=== PATIENT | female | born 1965 | race Caucasian/White ===

== ENCOUNTER 2021-01-23 14:01 | Emergency (ER) | payer OTHER ==
[2021-01-23] MEDS ORDERED: IBUPROFEN 600 MG TAB PO STA (17:33)
--- NOTE | 2021-01-23 17:41 | ED ---
General Adult HPI - General Chief complaint: Upper Respiratory Infection Stated complaint: Covid+,SOB Time Seen by Provider: 01/23/21 16:36 Source: patient Mode of arrival: ambulatory Limitations: no limitations - History of Present Illness Initial comments: 55-year-old female presents to the emergency department for evaluation. Patient states she tested positive for Covid yesterday, symptoms began on Monday evening. At this time patient complains of fatigue, headache, body aches, and dry cough. Patient reports intermittent episodes of shortness of breath. States she has a history of congenital heart disease and is requesting the monoclonal antibody infusion. States her primary care provider recommended this treatment for her. Patient denies fever, chills, abdominal pain, nausea, vomiting, diarrhea, or dysuria. - Related Data Home Medications Medication Instructions Recorded Confirmed Aspirin EC [Ecotrin Low Dose] 81 mg PO DAILY 01/23/21 01/23/21 Cholecalciferol [Vitamin D3 (125 125 mcg PO DAILY 01/23/21 01/23/21 Mcg = 5000 Iu)] Dextroamphetamine/Amphetamine 10 mg PO DAILY 01/23/21 01/23/21 [Adderall] Allergies Allergy/AdvReac Type Severity Reaction Status Date / Time cephalexin [From Keflex] Allergy Rash/Hives Verified 01/23/21 18:18 erythromycin base Allergy Rash/Hives Verified 01/23/21 18:18 Penicillins Allergy Rash/Hives Verified 01/23/21 18:18 Sulfa (Sulfonamide Allergy Rash/Hives Verified 01/23/21 18:18 Antibiotics) Tetracyclines Allergy Anaphylaxis Verified 01/23/21 18:18 vancomycin Allergy Rash/Hives Verified 01/23/21 18:18 Review of Systems ROS Statement: Those systems with pertinent positive or pertinent negative responses have been documented in the HPI. ROS Other: All systems not noted in ROS Statement are negative. Past Medical History Past Medical History: Hypertension Additional Past Medical History / Comment(s): irregular heartbeat History of Any Multi-Drug Resistant Organisms: MRSA Date of last positivie culture/infection: 2010 MDRO Source:: left breast implant area Past Surgical History: Ablation, Coronary Bypass/CABG Additional Past Surgical History / Comment(s): open heart at 5 years and 13 years old. cardiac ablasion at 23 Past Psychological History: No Psychological Hx Reported Smoking Status: Vaper Past Alcohol Use History: None Reported Past Drug Use History: None Reported General Exam Limitations: no limitations (Developed, well-nourished female in no acute distress. Initial temperature 98.1, pulse 90, respirations 18, blood pressure 89/62, pulse ox 99% on room air.) General appearance: alert, in no apparent distress ENT exam: Present: normal exam, normal oropharynx, mucous membranes moist Respiratory exam: Present: normal lung sounds bilaterally. Absent: respiratory distress, wheezes, rales, rhonchi, stridor Cardiovascular Exam: Present: regular rate, normal rhythm, normal heart sounds. Absent: systolic murmur, diastolic murmur, rubs, gallop, clicks GI/Abdominal exam: Present: soft, normal bowel sounds. Absent: distended, tenderness, guarding, rebound, rigid Neurological exam: Present: alert, oriented X3, CN II-XII intact Psychiatric exam: Present: normal affect, normal mood Skin exam: Present: warm, dry, intact, normal color. Absent: rash Course Vital Signs 01/23/21 01/23/21 01/23/21 14:33 19:45 21:26 Temperature 98.1 F 98.9 F 98.4 F Pulse Rate 90 77 67 Respiratory 18 16 15 Rate Blood Pressure 89/62 97/56 137/74 O2 Sat by Pulse 99 100 97 Oximetry Medical Decision Making - Medical Decision Making 55-year-old female with past medical history of congenital heart defect, presents to the emergency department requesting monoclonal antibody infusion. Patient states she tested positive for Covid yesterday, symptoms began on Mon evening. Upon exam, patient is well-appearing, in no respiratory distress or difficulty breathing. Patient is afebrile and not tachycardic nor tachypneic. Oxygen saturation 95% or greater. Risks and benefits of infusion were reviewed with patient. She states her PCP recommended this treatment therefore she is agreeable. Patient tolerated infusion without any adverse reaction. She will be discharged home to follow up with her primary care provider for a recheck. Return parameters were discussed in detail. Patient verbalizes understanding and agrees with this plan. This patient's care was discussed with my attending Dr. Bonilla. - Lab Data Lab Results 01/23/21 Range/Units 17:28 Coronavirus (PCR) Detected A (Not Detectd) Disposition Clinical Impression: COVID-19 Disposition: HOME SELF-CARE Condition: Stable Instructions (If sedation given, give patient instructions): Coronavirus Disease 2019 (COVID-19) Additional Instructions: Take Tylenol or Motrin for fever and discomfort. Take vitamins C, D, and zinc daily. You should quarantine for 10 days from symptom onset. Follow up with your primary care provider via video visit or telephone for further evaluation and treatment as needed. Return to the emergency department with any new, worsening, or concerning symptoms. Is patient prescribed a controlled substance at d/c from ED?: No Referrals: Nonstaff,Physician [Primary Care Provider] - 1-2 days Time of Disposition: 21:25
[2021-01-23] MEDS ORDERED: SODIUM CHLORIDE 0.9% 50 ML IVPB ONE (19:30)
[2021-01-23] MEDS ORDERED: CASIRIVIMAB (REGN10933) (EUA) 600 MG, IMDEVIMAB (REGN10987) (EUA) 600 MG in SODIUM CHLO... IVPB ONE (19:30)
[2021-01-23 21:28] VITALS: BP 137/74; PULSE 67; RESP 15; TEMP 98.4
== END 2021-01-23 21:26 | disposition home or self-care (01) ==
LOC: EC 14:01
DX: U07.1 COVID-19 (principal); I10 Essential (primary) hypertension; I49.9 Cardiac arrhythmia, unspecified; F17.290 Nicotine dependence, other tobacco product, uncomplicated; Z79.82 Long term (current) use of aspirin
CPT/HCPCS: 87635; 99284; 96360; Q0243